=== PATIENT | female | born 1985 | race Caucasian/White ===

== ENCOUNTER 2018-05-17 12:16 | Outpatient (CLI) | payer OTHER ==
[2018-05-17 13:36] VITALS: BP 123/97; PULSE 107; RESP 16; TEMP 98
== END 2018-05-17 13:25 ==
LOC: FBPOP 12:16
PROVIDERS: ATTEND Obstetrics & Gynecology
DX: O26.893 Other specified pregnancy related conditions, third trimester (principal); Z3A.38 38 weeks gestation of pregnancy
CPT/HCPCS: 59025; 99213

== ENCOUNTER 2018-05-26 19:15 | Inpatient (IN) | payer OTHER ==
[2018-05-26 19:57] LABS: Appearance,Urine Clear (Clear); Bilirubin,Urine Negative (Negative); Blood,Urine Negative (Negative); Color,Urine Colorless; Glucose,Urine (UA) Negative (Negative); Ketones,Urine Negative (Negative); Leukocyte Esterase,Urine Negative (Negative); Nitrite,Urine Negative (Negative); PH, Urine 6.5 (5.0-8.0); Protein,Urine Negative (Negative); Specific Gravity,Urine 1.002 (1.001-1.035); Urobilinogen,Urine <2.0 mg/dL (<2.0)
[2018-05-26 20:06] VITALS: RESP 16
[2018-05-26 20:48] LABS: Basophils % (A) 0 %; Eosinophils # (A) 0.1 k/uL (0-0.7); Eosinophils % (A) 1 %; HGB 14.4 gm/dL (11.4-16.0); Lymphocytes # (A) 2.3 k/uL (1.0-4.8); Lymphocytes % (A) 29 %; MCH 32.6 pg (25.0-35.0); MCHC 34.2 g/dL (31.0-37.0); MCV 95.5 fL (80.0-100.0); Mean Platelet Volume 7.5; Monocytes # (A) 0.5 k/uL (0-1.0); Monocytes % (A) 6 %; Neutrophils # (A) 4.9 k/uL (1.3-7.7); Neutrophils % (A) 61 %; Platelet Count 325 k/uL (150-450); RDW 12.8 % (11.5-15.5); WBC 7.9 k/uL (3.8-10.6)
[2018-05-26 20:52] LABS: ALT 25 U/L (9-52); AST 26 U/L (14-36); Blood Urea Nitrogen 10 mg/dL (7-17); LDH 439 U/L (313-618); Uric Acid 5.8 mg/dL (3.7-7.4)
[2018-05-26] MEDS ORDERED: METHYLERGONOVINE 0.2 MG/ML 1 ML AMP IM PRN (21:27)
[2018-05-26] MEDS ORDERED: OXYTOCIN 10 UNIT/ML 1 ML VIAL IM PRN (21:27)
[2018-05-26] MEDS ORDERED: TERBUTALINE 1 MG/ML VIAL SQ PRN (21:27)
[2018-05-26] MEDS ORDERED: CARBOPROST TROMETHAMINE 250 MCG/ML 1 ML AMP IM PRN (21:27)
[2018-05-26] MEDS ORDERED: BUTORPHANOL 1 MG/ML 1 ML VIAL IV PRN (21:27)
[2018-05-26] MEDS ORDERED: LIDOCAINE 0.5% (PF) 5 MG/ML (50 ML SDV) SQ PRN (21:27)
[2018-05-26 21:48] VITALS: BMI 29.0
[2018-05-26] MEDS: LACTATED RINGERS 1,000 ML IV SCH (21:52)
[2018-05-27] MEDS: LACTATED RINGERS 1,000 ML IV SCH ×2 (03:35→09:40)
[2018-05-27] MEDS ORDERED: OXYTOCIN 20 UNITS/1000 ML NS 1,000 ML IV SCH ×2 (07:15→13:30)
[2018-05-27] MEDS ORDERED: SODIUM CHLORIDE 0.9% 100 ML BAG ONE (09:25)
[2018-05-27] MEDS ORDERED: fentaNYL (PF) 50 MCG/ML 5 ML AMP ONE (09:25)
[2018-05-27] MEDS ORDERED: ROPIVACAINE 5MG/ML 20ML VIAL ONE (09:25)
--- NOTE | 2018-05-27 09:54 | P.HPOB ---
History of Present Illness H&P Date: 05/27/18 Chief Complaint: 39-6/7 weeks, early labor The patient is a 32-year-old 6 para 3113 admitted at 39-6/7 by last menstrual period and 7 week ultrasound. She is admitted in early labor with all signs reassuring. She was scheduled for induction this morning. Her has been uncomplicated though she carries a history of a previous 28 week intrauterine demise in her previous for which she has been undergoing weekly nonstress testing which was reassuring throughout. On labor and delivery, all signs reassuring as noted above. Group B strep status is negative. Obstetrical history: 6 para 3113 with 3 term vaginal deliveries, one of which did have a shoulder dystocia. She additionally had a 28 week normal vaginal delivery of an intrauterine demise as noted above. Otherwise she' s had one early miscarriage. Current statistics are listed in history present illness. EDC of 05/28/2018 was established by last menstrual period and confirmed by 9 week ultrasound. Laboratory workup demonstrates a blood type of A+ with a negative antibody screen. Rubella status is immune. The remainder of the laboratory workup was within normal limits. Initial 1 hour Glucola was elevated but followed by a normal three-hour glucose tolerance test. Group B strep status is negative. Gynecologic history: Unremarkable with no history of any infections to include STDs. Review of Systems Review of systems is confined to history of present illness. Past Medical History Past Medical History: No Reported History Additional Past Medical History / Comment(s): History of PIH with prior History of Any Multi-Drug Resistant Organisms: None Reported Past Surgical History: No Surgical Hx Reported Additional Past Surgical History / Comment(s): iufd at 9 weeks last year Past Anesthesia/Blood Transfusion Reactions: No Reported Reaction Past Psychological History: Anxiety Additional Psychological History / Comment(s): prn meds, none during Smoking Status: Never smoker Past Alcohol Use History: None Reported Past Drug Use History: None Reported - Past Family History Mother Family Medical History: No Reported History Medications and Allergies Home Medications Medication Instructions Recorded Confirmed Type Pnv,Calcium 72/Iron/Folic Acid 1 tab PO DAILY 03/10/17 05/26/18 History [ Plus Tablet] Amoxicillin 875 mg PO Q12HR 05/26/18 05/26/18 History Aspirin [Adult Low Dose Aspirin EC] 81 mg PO DAILY 05/26/18 05/26/18 History Allergies Allergy/AdvReac Type Severity Reaction Status Date / Time No Known Allergies Allergy Verified 05/26/18 19:38 Exam Vital Signs Temp Pulse Resp BP Pulse Ox 05/26/18 21:43 97.7 F 91 16 114/82 05/26/18 21:25 114/82 05/26/18 19:53 97.0 F L 95 16 122/98 99 Intake and Output 05/26/18 05/27/18 05/27/18 22:59 06:59 14:59 Intake Total 1000 Balance 1000 Intake: Intake, IV Titration 1000 Amount Lactated Ringers 1,000 ml 1000 @ 125 mls/hr IV .Q8H [facility] Rx#:[id number] Other: # Voids 2 1 Weight 81.647 kg In general, this is a well-developed, well-nourished white female in no acute distress. Her heart has a regular rhythm and rate without murmur. Her lungs are clear to auscultation bilaterally in all villalobos. Her abdomen is gravid, nondistended, has normal active bowel sounds, is soft, nontender, and without any palpable masses aside from uterine fundus. Her extremities are without any cyanosis, clubbing, or edema and are nontender to palpation bilaterally. Digital cervical examination demonstrates her cervix to be 3 cm dilated, 50% effaced, the vertex in presentation at -3 station. Artificial rupture of membranes is carried out demonstrating clear fluid. Results Result Diagrams: 05/26/18 20:09 05/26/18 20:09 Assessment and Plan (1) Active labor at term Current Visit: Yes Status: Acute Code(s): GUM2826 - SNOMED Code(s): 20053453 Plan: The patient has been admitted for augmentation of labor. Pitocin augmentation has been started. An epidural catheter is in place for analgesia. She will have close maternal and surveillance and expectant management will be practiced.
[2018-05-27] MEDS ORDERED: LANOLIN CREAM 5 GM TUBE TOPICAL PRN (13:30)
[2018-05-27] MEDS ORDERED: SIMETHICONE 80 MG CHEWABLE PO PRN (13:30)
[2018-05-27] MEDS ORDERED: diphenhydrAMINE 25 MG CAP PO PRN (13:30)
[2018-05-27] MEDS ORDERED: HYDROCORTISONE 2.5% RECTAL CREAM 30 GM TUBE RECTAL PRN (13:30)
[2018-05-27] MEDS ORDERED: diphenhydrAMINE 50 MG/ML 1 ML VIAL IVP PRN ×2 (13:30)
[2018-05-27] MEDS ORDERED: BENZOCAINE/MENTHOL SPRAY 1 GM/SPRAY AEROSOL TOPICAL PRN (13:30)
[2018-05-27] MEDS ORDERED: HYDROcodone/APAP 5-325MG 1 EACH TAB PO PRN (13:30)
[2018-05-27] MEDS ORDERED: ZOLPIDEM 5 MG TAB PO PRN (13:30)
[2018-05-27] MEDS ORDERED: ACETAMINOPHEN TAB 325 MG TAB PO PRN (13:30)
[2018-05-27] MEDS ORDERED: diphenhydrAMINE 50 MG CAP PO PRN (13:30)
[2018-05-27] MEDS ORDERED: HYDROcodone/APAP 7.5-325MG 1 EACH TAB PO PRN (13:30)
[2018-05-27] MEDS ORDERED: WITCH HAZEL 1 EACH MED..PAD TOPICAL PRN (13:30)
--- NOTE | 2018-05-27 13:34 | P.PROBDLV ---
Vaginal Delivery Note - . Vaginal Delivery Note: The patient is a 32-year-old 6 para 3113 admitted at 39-6/7 weeks by good dating parameters perches admitted in early labor with a scheduled induction this morning. Her has been uncomplicated though she carries a history of a 28 week demise for which she has undergone weekly testing in the third trimester which is been reassuring. Group B strep status is negative. On labor and delivery, all signs reassuring. Pitocin augmentation was started and artificial rupture of membranes carried out demonstrating clear fluid. She had an epidural catheter placed for analgesia and then made fairly rapid progress through the active phase of labor to complete and 0 station. She pushed over the course of approximately 20 minutes to a normal spontaneous vaginal delivery of a viable 9 lbs. 3 oz. baby girl with Apgars of 9 at 1 minute and 9 at 5 minutes delivered in the left occiput transverse position. The placenta was delivered spontaneously, intact, and grossly normal with a grossly normal three-vessel cord inserted approximately 4-5 cm from the margin of the placental disc. Her were no lacerations of the perineum, vagina, or cervix. All sponge, instrument, and needle counts were correct. There were no complications. Estimated blood loss for the case was approximately 300 mL. Both mother and are resting comfortably in recovery.
[2018-05-27] MEDS: SENNOSIDES-DOCUSATE SODIUM 1 EACH TAB PO SCH (19:45)
[2018-05-27] MEDS: IBUPROFEN 600 MG TAB PO PRN (22:01)
[2018-05-28] MEDS: IBUPROFEN 600 MG TAB PO PRN ×2 (04:18→10:36)
[2018-05-28] MEDS: SENNOSIDES-DOCUSATE SODIUM 1 EACH TAB PO SCH (08:44)
--- NOTE | 2018-05-28 08:52 | P.DS ---
Providers Date of admission: 05/26/18 21:24 Expected date of discharge: 05/28/18 Attending physician: Edgar Hester Primary care physician: Stated None - Discharge Diagnosis(es) (1) Active labor at term Current Visit: Yes Status: Acute (2) Normal spontaneous vaginal delivery Current Visit: Yes Status: Acute Hospital Course: The patient is a 32-year-old 6 para 3113 admitted at 39-6/7 weeks by good dating parameters perches admitted in early labor with all signs reassuring. Her pregnancies been uncomplicated though she does have a history of a previous 28 week intrauterine demise in her previous . testing was reassuring. On labor and delivery, she had artificial rupture of membranes demonstrating clear fluid. She had Pitocin augmentation started. She then had an epidural catheter placed for analgesia and made fairly rapid progress through the active phase of labor. She pushed then to a normal spontaneous vaginal delivery of a viable 9 lbs. 3 oz. baby girl with Apgars of 9 at 1 minute and 9 at 5 minutes. Her course was unremarkable with vital signs remaining stable and her temperature was afebrile throughout. She was deemed stable for discharge on day #1 was discharged home to follow-up in the office in 6 weeks' time routinely. Discharge instructions included calling for any significantly increased bleeding or foul-smelling lochia, significantly increased fever abdominal pain, perineal complaints, breast complaints, or anything else that concerned her. She was additionally instructed to have nothing in the vagina for at least 6 weeks time to include intercourse. She understood all of her instructions and agrees to follow up as noted above. Discharge medications included continued vitamins as she has opted to breast-feed. She was otherwise to use [id number] analgesic pain medications. Maternal blood type is A+ and rubella status is immune. Procedures: #1. Pitocin augmentation #2. Artificial rupture of membranes #3. Epidural analgesia #4. Normal spontaneous vaginal delivery Patient Condition at Discharge: Good Plan - Discharge Summary New Discharge Prescriptions: No Action Pnv,Calcium 72/Iron/Folic Acid [ Plus Tablet] 1 tab PO DAILY Amoxicillin 875 mg PO Q12HR Aspirin [Adult Low Dose Aspirin EC] 81 mg PO DAILY Discharge Medication List Pnv,Calcium 72/Iron/Folic Acid [ Plus Tablet] 1 tab PO DAILY 03/10/17 [ History] Amoxicillin 875 mg PO Q12HR 05/26/18 [History] Aspirin [Adult Low Dose Aspirin EC] 81 mg PO DAILY 05/26/18 [History] Follow up Appointment(s)/Referral(s): Edgar Hester MD [STAFF PHYSICIAN] - 6 Weeks Discharge Disposition: HOME SELF-CARE
[2018-05-28 09:23] VITALS: TEMP 97.8
[2018-05-28 13:47] VITALS: BP 126/82; PULSE 69
== END 2018-05-28 14:30 | disposition home or self-care (01) | DRG 807 ==
LOC: FBPOP 19:15 → 4FBP 21:24
PROVIDERS: ADMIT Obstetrics & Gynecology Obstetrics; ATTEND Obstetrics & Gynecology
PROC: 10E0XZZ Delivery of Products of Conception, External Approach (ICD-10-PCS; principal; 2018-05-27)
PROC: 00HU33Z Insertion of Infusion Device into Spinal Canal, Percutaneous Approach (ICD-10-PCS; 2018-05-27)
PROC: 3E0R3BZ Introduction of Anesthetic Agent into Spinal Canal, Percutaneous Approach (ICD-10-PCS; 2018-05-27)
DX: O99.344 Other mental disorders complicating childbirth (principal); Z37.0 Single live birth; F41.9 Anxiety disorder, unspecified; Z3A.39 39 weeks gestation of pregnancy; Z79.82 Long term (current) use of aspirin
CPT/HCPCS: 59025; 81003; 82565; 83615; 84450; 84460; 84520; 84550; 85025; 86850; 86900; 86901; 99213

== ENCOUNTER → 2019-06-26 | Outpatient (CLI) | payer OTHER | END | disposition home or self-care (01) | LOC: LABWHC1 10:49 | PROVIDERS: ATTEND Obstetrics & Gynecology | DX: N91.2 Amenorrhea, unspecified (principal) | CPT/HCPCS: 36415; 84144; 84702 ==

== ENCOUNTER → 2019-06-28 | Outpatient (CLI) | payer OTHER | END | disposition home or self-care (01) | LOC: LABWHC1 10:45 | PROVIDERS: ATTEND Obstetrics & Gynecology | DX: N91.2 Amenorrhea, unspecified (principal) | CPT/HCPCS: 36415; 84702 ==

== ENCOUNTER → 2019-07-18 | Outpatient (CLI) | payer OTHER | END | disposition home or self-care (01) | LOC: LABWHC1 16:47 | DX: Z53.9 Procedure and treatment not carried out, unspecified reason (principal) ==

== ENCOUNTER → 2019-07-21 | Outpatient (CLI) | payer OTHER ==
[2019-07-21 16:38] LABS: Cardiolipin Ab IgG Interp NEGATIVE (NEGATIVE); Cardiolipin Ab IgM Interp NEGATIVE (NEGATIVE); Cardiolipin IgA Antibody 8.8 U/mL
[2019-07-22 12:05] LABS: APTT 37 Sec(s) (<43); Dilute Russell Viper Venom 39 Sec(s) (<44)
== END | disposition home or self-care (01) ==
LOC: LABWHC1 09:50
PROVIDERS: ATTEND Orthopaedic Surgery
DX: O26.20 Pregnancy care for patient with recurrent pregnancy loss, unspecified trimester (principal); O09.219 Supervision of pregnancy with history of pre-term labor, unspecified trimester
CPT/HCPCS: 36415; 81240; 81291; 85300; 85613; 85730; 86146; 86147

== ENCOUNTER → 2020-03-02 | Outpatient (CLI) | payer OTHER | END | disposition home or self-care (01) | LOC: LABWHC1 09:43 | PROVIDERS: ATTEND Obstetrics & Gynecology | DX: U07.1 COVID-19 (principal) | CPT/HCPCS: U0003; C9803 ==

== ENCOUNTER 2020-03-07 03:12 | Inpatient (IN) | payer OTHER ==
[2020-03-07 03:29] LABS: Glucose,Whole Blood 84 mg/dL (75-99)
[2020-03-07] MEDS ORDERED: diphenhydrAMINE 50 MG CAP PO PRN (03:56)
[2020-03-07] MEDS ORDERED: LANOLIN CREAM 5 GM TUBE TOPICAL PRN (03:56)
[2020-03-07] MEDS ORDERED: diphenhydrAMINE 50 MG/ML 1 ML VIAL IVP PRN ×2 (03:56)
[2020-03-07] MEDS ORDERED: diphenhydrAMINE 25 MG CAP PO PRN (03:56)
[2020-03-07] MEDS ORDERED: SIMETHICONE 80 MG CHEWABLE PO PRN (03:56)
[2020-03-07] MEDS ORDERED: HYDROCORTISONE 2.5% RECTAL CREAM 30 GM TUBE RECTAL PRN (03:56)
[2020-03-07] MEDS ORDERED: ZOLPIDEM 5 MG TAB PO PRN (03:56)
[2020-03-07] MEDS ORDERED: BENZOCAINE/MENTHOL SPRAY 1 GM/SPRAY AEROSOL TOPICAL PRN (03:56)
[2020-03-07] MEDS ORDERED: OXYTOCIN 20 UNITS/1000 ML NS 1,000 ML IV SCH (04:00)
--- NOTE | 2020-03-07 04:06 | P.HPOB ---
History of Present Illness H&P Date: 03/07/20 Chief Complaint: IUP @ 40 0/7 weeks, labor, meconium stained fluid Yes this is a 34-year-old that presents to labor and delivery with complaints of regular painful contractions that started around 2 AM. Patient states they progressed quickly and she presented to labor and delivery. At some point underwent hospital rupture of membranes occurred. Patient has noted good movement today. Patient has been receiving routine care which is been essentially uncomplicated. Patient is known homozygous empty HFR and was on Lovenox 40 mg subcu daily which was subsequently changed to heparin at 36 weeks. Of note patient has a history of a 28 week IUFD and patient has been receiving testing since 30 weeks. On bloodwork patient was noted to have blood type of A+, rubella status immune, RPR nonreactive, B surface antigen negative, HIV negative, she did fail her 1 hour Glucola and subsequent 3 hour. She states her blood sugars have been normal throughout the . Group beta strep culture was negative. Review of Systems Constitutional: Denies chills, Denies fatigue, Denies fever Ears, nose, mouth and throat: Denies headache Cardiovascular: Reports leg edema Gastrointestinal: Denies constipation, Denies diarrhea, Denies nausea, Denies vomiting Genitourinary: Reports Past Medical History Past Medical History: No Reported History Additional Past Medical History / Comment(s): History of PIH with prior pre gnancy, gestational diabetes History of Any Multi-Drug Resistant Organisms: None Reported Past Surgical History: No Surgical Hx Reported Additional Past Surgical History / Comment(s): iufd at 9 weeks last year Past Anesthesia/Blood Transfusion Reactions: No Reported Reaction Past Psychological History: Anxiety Additional Psychological History / Comment(s): prn meds, none during Smoking Status: Never smoker Past Alcohol Use History: None Reported Past Drug Use History: None Reported - Past Family History Mother Family Medical History: No Reported History Medications and Allergies Home Medications Medication Instructions Recorded Confirmed Type Pnv,Calcium 72/Iron/Folic Acid 1 tab PO DAILY 03/10/17 12/26/19 History [ Plus Tablet] Aspirin [Adult Low Dose Aspirin EC] 81 mg PO DAILY 05/26/18 12/26/19 History Allergies Allergy/AdvReac Type Severity Reaction Status Date / Time No Known Allergies Allergy Verified 08/14/20 11:30 Exam Osteopathic Statement: *. No significant issues noted on an osteopathic structural exam other than those noted in the History and Physical/Consult. Targeted physical exam is performed on this date in general this is a [facility] well[facility]developed [facility] in obvious active labor, breathing is noted to be nonlabored, heart has regular rate and rhythm, abdomen is noted to be gravid, heart tones are noted to be reassuring but patient is moving around in the bed so there was some difficulty monitoring the baby. On cervical exam she was completely dilated, +2 station meconium stained fluid was noted. Assessment and Plan (1) Thick meconium stained amniotic fluid Current Visit: Yes Status: Acute Code(s): P96.83 - MECONIUM STAINING SNOMED Code(s): 249244138 (2) Active labor at term Current Visit: No Status: Acute Code(s): FLK7295 - SNOMED Code(s): 17276162 Plan: Patient is admitted to labor and delivery for anticipated precipitous spontaneous vaginal delivery.
--- NOTE | 2020-03-07 04:08 | P.PROBDLV ---
Vaginal Delivery Note - . Vaginal Delivery Note: This is a 34-year-old 8 para 4034 that presented to labor and delivery in active labor. Patient was noted to be 8 cm upon presentation with thick meconium fluid being noted. Patient quickly progressed to complete began pushing and had a normal spontaneous vaginal delivery of a viable male , at 340, weight of 9 and 9 lbs. 11 oz. with Apgars of 8/9 at one and 5 minutes respectively. A loose nuchal cord was noted at delivery and reduced on the perineum. Umbilical cord was doubly clamped and cut and the infant was handed off to awaiting RN spontaneous cry was noted at . The placenta was then delivered spontaneously intact with a three-vessel cord being noted. Meconium- staining of the placenta was noted. On inspection the patient's vaginal vault no lacerations were noted. The uterus is noted be firm and below the umbilicus. Estimated blood loss 200 mL. All counts were noted correct 2 at the delivery Patient and tolerated delivery well and are resting comfortably.
[2020-03-07] MEDS: IBUPROFEN 600 MG TAB PO PRN ×3 (04:20→17:35)
[2020-03-07 04:58] LABS: Glucose,Whole Blood 91 mg/dL (75-99)
[2020-03-07] MEDS: ACETAMINOPHEN TAB 325 MG TAB PO PRN ×3 (08:04→20:43)
[2020-03-07] MEDS: SENNOSIDES-DOCUSATE SODIUM 1 EACH TAB PO SCH ×2 (08:04→20:43)
[2020-03-07] MEDS: PRENATAL VIT-IRON-FOLIC ACID 1 EACH CAP PO SCH (11:53)
[2020-03-08] MEDS: IBUPROFEN 600 MG TAB PO PRN (08:21)
[2020-03-08] MEDS: SENNOSIDES-DOCUSATE SODIUM 1 EACH TAB PO SCH (08:21)
--- NOTE | 2020-03-08 09:00 | P.DS ---
Providers Date of admission: 03/07/20 03:12 Expected date of discharge: 03/08/20 Attending physician: Edgar Hester Primary care physician: Edgar Hester - Discharge Diagnosis(es) (1) Normal spontaneous vaginal delivery Current Visit: No Status: Acute Hospital Course: The patient is a 34-year-old 8 para 4044 presented to labor and delivery in active labor with all signs reassuring. Her has been uncomplicated though she has a history of a late term demise for which she has been receiving testing on a weekly basis which has been reassuring throughout. She has additionally been using Lovenox 40 mg subcutaneously on a daily basis for a history of MTHFR heterozygous gene mutation. She was noted to have thick meconium-stained fluid and progressed very quickly to complete where after she pushed to a normal spontaneous vaginal delivery of a viable 9 lbs. 11 oz. baby boy with Apgars of 8 at 1 minute and 9 at 5 minutes. Her course was entirely unremarkable with vital signs remaining stable and her temperature was afebrile throughout. She was deemed stable for discharge by day #1 was discharged home to follow-up in the office in 6 weeks' time routinely. Discharge instructions included calling for any significantly increased bleeding or foul-smelling lochia, significantly increased fever abdominal pain, perineal complaints, breast complaints, or anything also concerned her. She was additionally instructed to have nothing in the vagina for at least 6 weeks time to include intercourse. She understood her instructions and agrees to follow up as noted above. Discharge medications included continue vitamins as she has opted to breast-feed. She was otherwise to take [id number] analgesic pain medications as needed. Maternal blood type is A+ and rubella status is immune. Procedures: #1. Normal spontaneous vaginal delivery Patient Condition at Discharge: Stable Plan - Discharge Summary New Discharge Prescriptions: No Action Pnv,Calcium 72/Iron/Folic Acid [ Plus Tablet] 1 tab PO DAILY Aspirin [Adult Low Dose Aspirin EC] 81 mg PO DAILY Heparin Sodium,Porcine [Heparin Sodium] 5,000 unit SQ Q12HR Discharge Medication List Pnv,Calcium 72/Iron/Folic Acid [ Plus Tablet] 1 tab PO DAILY 03/10/17 [History] Aspirin [Adult Low Dose Aspirin EC] 81 mg PO DAILY 05/26/18 [History] Heparin Sodium,Porcine [Heparin Sodium] 5,000 unit SQ Q12HR 03/07/20 [History] Follow up Appointment(s)/Referral(s): Edgar Hester MD [Primary Care Provider] - 6 Weeks Discharge Disposition: HOME SELF-CARE
[2020-03-08 09:14] VITALS: BP 136/87; PULSE 95; RESP 16; TEMP 98
[2020-03-08] MEDS: PRENATAL VIT-IRON-FOLIC ACID 1 EACH CAP PO SCH (09:15)
== END 2020-03-08 10:40 | disposition home or self-care (01) | DRG 806 ==
LOC: 4FBP 03:12
PROVIDERS: ADMIT Obstetrics & Gynecology Obstetrics; ATTEND Obstetrics & Gynecology
PROC: 10E0XZZ Delivery of Products of Conception, External Approach (ICD-10-PCS; principal; 2020-03-07)
DX: O99.284 Endocrine, nutritional and metabolic diseases complicating childbirth (principal); E72.12 Methylenetetrahydrofolate reductase deficiency; Z37.0 Single live birth; O69.81X0 Labor and delivery complicated by cord around neck, without compression, not applicable or unspecified; O77.0 Labor and delivery complicated by meconium in amniotic fluid; O99.344 Other mental disorders complicating childbirth; F41.9 Anxiety disorder, unspecified; Z3A.40 40 weeks gestation of pregnancy; Z79.82 Long term (current) use of aspirin; Z86.32 Personal history of gestational diabetes

== ENCOUNTER → 2021-01-31 | Outpatient (CLI) | payer OTHER | END | disposition home or self-care (01) | LOC: LABWHC1 10:12 | PROVIDERS: ATTEND Obstetrics & Gynecology | DX: N92.5 Other specified irregular menstruation (principal) | CPT/HCPCS: 36415; 84144; 84702 ==

== ENCOUNTER → 2021-02-02 | Outpatient (CLI) | payer OTHER | END | disposition home or self-care (01) | LOC: LABWHC1 09:53 | PROVIDERS: ATTEND Obstetrics & Gynecology | DX: O20.0 Threatened abortion (principal); Z3A.00 Weeks of gestation of pregnancy not specified | CPT/HCPCS: 36415; 84702 ==

== ENCOUNTER 2021-10-06 06:27 | Inpatient (IN) | payer BC, OTHER ==
[2021-10-06] MEDS ORDERED: OXYTOCIN 10 UNIT/ML 1 ML VIAL IM PRN (06:54)
[2021-10-06] MEDS ORDERED: LIDOCAINE 0.5% (PF) 5 MG/ML (50 ML SDV) SQ PRN (06:54)
[2021-10-06] MEDS ORDERED: METHYLERGONOVINE 0.2 MG/ML 1 ML AMP IM PRN (06:54)
[2021-10-06] MEDS ORDERED: CARBOPROST TROMETHAMINE 250 MCG/ML 1 ML AMP IM PRN (06:54)
[2021-10-06] MEDS ORDERED: TERBUTALINE 1 MG/ML VIAL SQ PRN (06:54)
[2021-10-06] MEDS ORDERED: OXYTOCIN 30 UNITS/500 ML NS 30 UNIT in SALINE 1 500ML.BAG IV SCH (07:00)
[2021-10-06] MEDS: LACTATED RINGERS 1,000 ML IV SCH ×3 (07:05→21:56)
[2021-10-06 07:27] LABS: Basophils % (A) 0 %; Eosinophils # (A) 0.1 k/uL (0-0.7); Eosinophils % (A) 1 %; HCT 44.6 % (34.0-46.0); HGB 14.5 gm/dL (11.4-16.0); Lymphocytes # (A) 1.6 k/uL (1.0-4.8); Lymphocytes % (A) 22 %; MCH 32.7 pg (25.0-35.0); MCHC 32.6 g/dL (31.0-37.0); MCV 100.5 fL (80.0-100.0); Mean Platelet Volume 7.3; Monocytes # (A) 0.4 k/uL (0-1.0); Monocytes % (A) 6 %; Neutrophils % (A) 68 %; Platelet Count 333 k/uL (150-450); RBC 4.44 m/uL (3.80-5.40); RDW 13.4 % (11.5-15.5); WBC 7.3 k/uL (3.8-10.6)
--- NOTE | 2021-10-06 08:09 | P.HPOB ---
History of Present Illness H&P Date: 10/06/21 Chief Complaint: Here for elective induction of labor This is a 36-year-old female 9 para 5035 EDC 10/10/2021 39-3/7 weeks' gestation who presents for induction of labor. is unremarkable. Fetus is been active throughout the . She is having mild irregular uterine contractions. Past medical history is positive for positive MTHFR gene mutation, history of anxiety. Past surgical history wisdom teeth extracted. Current medications Lovenox 40 mg subcutaneously daily, discontinued 1 week ago. vitamin daily, baby aspirin daily. ALLERGIES none known. Family history significant for hypertension, hypothyroidism, juvenile rheumatoid arthritis. Reproductive history normal spontaneous vaginal deliveries 5, largest baby 9 lbs. 11 oz. Social history patient is , she is a nonsmoker, she denies alcohol or drug use. history blood type is A+, rubella status immune. VDRL testing, hepatitis B surface antigen, urine culture, HIV testing, group B strep cultures all negative. One-hour Glucola 112. On exam patient is 5 foot 6 inches, 157 pounds, blood pressure 116/84. General physical exam is within normal limits. Cervix is 3 cm dilated, 60% effaced, -2 station, vertex presentation. Artificial amniorrhexis reveals clear fluid. heart rate is consistent with reactive NST. Impression: Advanced maternal age, 39-3/7 weeks intrauterine , history of positive MTHFR, here for induction of labor. All signs reassuring. Plan: Oxytocin per hospital protocol. Continue close maternal and survei llance. Analgesic options reviewed. Anticipate normal spontaneous vaginal delivery. Review of Systems Constitutional: Reports as per HPI Past Medical History Past Medical History: No Reported History Additional Past Medical History / Comment(s): History of PIH with prior , gestational diabetes History of Any Multi-Drug Resistant Organisms: None Reported Past Surgical History: No Surgical Hx Reported Additional Past Surgical History / Comment(s): iufd at 9 weeks last year Past Anesthesia/Blood Transfusion Reactions: No Reported Reaction Past Psychological History: Anxiety Additional Psychological History / Comment(s): prn meds, none during Smoking Status: Never smoker Past Alcohol Use History: None Reported Past Drug Use History: None Reported - Past Family History Father Family Medical History: Diabetes Mellitus, Hypertension Medications and Allergies Home Medications Medication Instructions Recorded Confirmed Type Pnv,Calcium 72/Iron/Folic Acid 1 tab PO DAILY 03/10/17 10/06/21 History [ Plus Tablet] Aspirin [Adult Low Dose Aspirin EC] 81 mg PO DAILY 05/26/18 10/06/21 History Enoxaparin [Lovenox] 40 mg SQ DAILY 10/06/21 10/06/21 History Allergies Allergy/AdvReac Type Severity Reaction Status Date / Time No Known Allergies Allergy Verified 03/07/20 04:22 Exam Intake and Output 10/05/21 10/06/21 10/06/21 22:59 06:59 14:59 Other: Weight 71.214 kg See dictation under HPI please Results Result Diagrams: 10/06/21 06:50 Abnormal Lab Results - Last 24 Hours (Table) 10/06/21 Range/Units 06:50 MCV 100.5 H (80.0-100.0) fL Assessment and Plan Assessment: Advanced maternal age, grand multipara, 39-3/7 weeks' gestation, here for induction of labor. Plan: Continue close maternal and surveillance. Oxytocin per hospital protocol. Analgesic options reviewed. Anticipate normal spontaneous vaginal delivery. Time with Patient: Less than 30
--- NOTE | 2021-10-06 14:56 | P.PROBDLV ---
Vaginal Delivery Note - . Vaginal Delivery Note: This is a 36-year-old 9 para 5035 EDC 10/10/2021 at 39-3/7 weeks' gestation. Patient presented for induction with favorable cervix. Rupee strep cultures negative, blood type A+, rubella status immune. Please see my dictated history and physical for details. Artificial amniorrhexis revealed clear fluid. Oxytocin was started and titrated per hospital protocol. Epidural was placed per her request. heart tones were reassuring throughout the first and second stages of labor. Patient became completely dilated at 1304 hrs. and began the second stage of labor at that time. Perineal body was prepped and draped in usual sterile fashion. After 20 minutes the 's head delivered straight occiput posterior. She restituted accordingly. There was no nuchal cord noted. The right or anterior shoulder was delivered from underneath the pubic symphysis at which time the oropharynx, nasopharynx, and external nares were bulb suctioned. Patient was officially delivered of a liveborn female infant at 1324 hrs. The umbilical cord was doubly clamped and ligated, she was handed to waiting nurses for evaluation where scores of 9 and 9 at one and 5 minutes respectively were given. Placenta delivered spontaneously, it was inspected and noted to be intact with trivascular cord at 1326 hours. At this time the uterus is massaged. Careful inspection of the cervix, vagina, perineum, periurethral, and perirectal areas revealed no lacerations or defects. Total estimated blood loss 150 mL's. weighed 10 lbs. 7 oz. or 3470 g. Patient and her are allowed to begin the bonding experience in the LDR.
[2021-10-06] MEDS ORDERED: ACETAMINOPHEN TAB 325 MG TAB PO PRN (20:19)
[2021-10-06] MEDS ORDERED: LANOLIN CREAM 5 GM TUBE TOPICAL PRN (20:19)
[2021-10-06] MEDS ORDERED: SIMETHICONE 80 MG CHEWABLE PO PRN (20:19)
[2021-10-06] MEDS ORDERED: diphenhydrAMINE 50 MG CAP PO PRN (20:19)
[2021-10-06] MEDS ORDERED: ZOLPIDEM 5 MG TAB PO PRN (20:19)
[2021-10-06] MEDS ORDERED: diphenhydrAMINE 25 MG CAP PO PRN (20:19)
[2021-10-06] MEDS: IBUPROFEN 600 MG TAB PO PRN (20:39)
[2021-10-06] MEDS: SENNOSIDES-DOCUSATE SODIUM 1 EACH TAB PO SCH (20:39)
[2021-10-07] MEDS: IBUPROFEN 600 MG TAB PO PRN ×2 (02:59→09:20)
[2021-10-07 07:18] LABS: Basophils % (A) 0 %; Eosinophils # (A) 0.2 k/uL (0-0.7); Eosinophils % (A) 2 %; HCT 41.5 % (34.0-46.0); HGB 13.4 gm/dL (11.4-16.0); Lymphocytes # (A) 1.5 k/uL (1.0-4.8); Lymphocytes % (A) 17 %; MCH 32.5 pg (25.0-35.0); MCHC 32.2 g/dL (31.0-37.0); MCV 100.8 fL (80.0-100.0); Mean Platelet Volume 7.7; Monocytes # (A) 0.6 k/uL (0-1.0); Monocytes % (A) 7 %; Neutrophils # (A) 6.4 k/uL (1.3-7.7); Neutrophils % (A) 72 %; Platelet Count 261 k/uL (150-450); RBC 4.12 m/uL (3.80-5.40); RDW 12.9 % (11.5-15.5)
[2021-10-07] MEDS ORDERED: SENNOSIDES-DOCUSATE SODIUM 1 EACH TAB PO SCH (08:00)
[2021-10-07] MEDS: SENNOSIDES-DOCUSATE SODIUM 1 EACH TAB PO SCH (08:14)
[2021-10-07 08:19] VITALS: BP 118/75; PULSE 83; RESP 17; TEMP 98.3
--- NOTE | 2021-10-07 09:31 | P.DS ---
Providers Date of admission: 10/06/21 06:27 Expected date of discharge: 10/07/21 Attending physician: Edgar Hester Primary care physician: Stated None - Discharge Diagnosis(es) (1) Normal spontaneous vaginal delivery Current Visit: No Status: Acute Hospital Course: The patient is a 36-year-old 9 para 5125 admitted at 39-3/7 weeks by good dating parameters. She is admitted for elective induction of labor having had history of a previous roughly 28 week demise and diagnosis of MT HFR gene mutation for which she has been on Lovenox throughout the . In order to make an epidural possible, induction was recommended and agreed to by the patient. She additionally falls into the category of advanced maternal age and declined testing. She lastly has had an unstable lie over the last 4 weeks but is found to be vertex this week and at the time of admission. Pitocin augmentation was started and artificial rupture of membranes started. She had an epidural catheter placed for analgesia. She made progress to the active phase of labor to complete and then pushed to a normal spontaneous vaginal delivery of a viable 7 lbs. 10 oz. baby girl with Apgars of 9 at 1 minute and 9 at 5 minutes. Her course was unremarkable vital signs being stable and her temperature was afebrile throughout. She was deemed stable for discharge on day #1 was discharged home to follow-up in the office in 6 weeks' time routinely. Discharge instructions included calling for any significantly increased bleeding or foul-smelling lochia, significantly increased fever or abdominal pain, perineal complaints, breast complaints, or anything else that concerned her. She is additionally instructed to have nothing in the vagina for at least 6 weeks time to include intercourse. She understood her instructions and agrees follow up as noted above. Discharge medications included continued vitamins as she has opted to breast- feed. She is otherwise to use [id number] analgesic pain medications as needed. Maternal blood type is A+ and rubella status is immune. Procedures: #1. Pitocin induction #2. Artificial rupture of membranes #3. Epidural analgesia #4. Normal spontaneous vaginal delivery Patient Condition at Discharge: Stable Plan - Discharge Summary New Discharge Prescriptions: No Action Pnv,Calcium 72/Iron/Folic Acid [ Plus Tablet] 1 tab PO DAILY Aspirin [Adult Low Dose Aspirin EC] 81 mg PO DAILY Enoxaparin [Lovenox] 40 mg SQ DAILY Discharge Medication List Pnv,Calcium 72/Iron/Folic Acid [ Plus Tablet] 1 tab PO DAILY 03/10/17 [History] Aspirin [Adult Low Dose Aspirin EC] 81 mg PO DAILY 05/26/18 [History] Enoxaparin [Lovenox] 40 mg SQ DAILY 10/06/21 [History] Follow up Appointment(s)/Referral(s): Edgar Hester MD [STAFF PHYSICIAN] - 6 Weeks Discharge Disposition: HOME SELF-CARE
== END 2021-10-07 14:25 | disposition home or self-care (01) | DRG 806 ==
LOC: 4FBP 06:27
PROVIDERS: ADMIT Obstetrics & Gynecology; ATTEND Obstetrics & Gynecology
PROC: 10E0XZZ Delivery of Products of Conception, External Approach (ICD-10-PCS; principal; 2021-10-06)
PROC: 4A0HXCZ Measurement of Products of Conception, Cardiac Rate, External Approach (ICD-10-PCS; 2021-10-06)
PROC: 10907ZC Drainage of Amniotic Fluid, Therapeutic from Products of Conception, Via Natural or Artificial Opening (ICD-10-PCS; 2021-10-06)
PROC: 3E033VJ Introduction of Other Hormone into Peripheral Vein, Percutaneous Approach (ICD-10-PCS; 2021-10-06)
DX: O99.284 Endocrine, nutritional and metabolic diseases complicating childbirth (principal); E72.12 Methylenetetrahydrofolate reductase deficiency; Z37.0 Single live birth; F41.9 Anxiety disorder, unspecified; O99.344 Other mental disorders complicating childbirth; Z3A.39 39 weeks gestation of pregnancy; Z79.82 Long term (current) use of aspirin; Z86.32 Personal history of gestational diabetes
CPT/HCPCS: 85025; 86850; 86900; 86901

== ENCOUNTER → 2021-10-31 | Outpatient (CLI) | payer BC, OTHER ==
[2021-10-31 14:22] LABS: HCT 50.8 % (37.2-46.3); HGB 15.9 g/dL (12.0-15.0); MCH 31.2 pg (27.0-32.0); MCHC 31.3 g/dL (32.0-37.0); MCV 99.8 fL (80.0-97.0); Mean Platelet Volume 9.7 fL (9.5-12.2); NRBC Per 100 WBC 0 /100 WBCS (0.0-0.0); Platelet Count 353 X 10*3/uL (140-440); RBC 5.09 X 10*6/uL (4.10-5.20); RDW 11.5 % (11.5-14.5); WBC 5.34 X 10*3/uL (4.50-10.00)
[2021-10-31 15:01] LABS: % Iron Saturation 43.79 (12.00-45.00)
== END | disposition home or self-care (01) ==
LOC: LABWHC1 08:41
PROVIDERS: ATTEND Family Medicine
DX: D68.59 Other primary thrombophilia (principal)
CPT/HCPCS: 36415; 82306; 82728; 82746; 83090; 83540; 83550; 85027

== ENCOUNTER 2023-05-30 06:14 | Inpatient (IN) | payer BC, OTHER ==
[2023-05-30] MEDS ORDERED: OXYTOCIN 10 UNIT/ML 1 ML VIAL IM PRN (06:34)
[2023-05-30] MEDS ORDERED: METHYLERGONOVINE 0.2 MG/ML 1 ML AMP IM PRN (06:34)
[2023-05-30] MEDS ORDERED: miSOPROStoL 200 MCG TAB PO PRN (06:34)
[2023-05-30] MEDS ORDERED: TRANEXAMIC 1,000 MG/100ML-NACL 1,000 MG in EMPTY BAG 1 BAG IV PRN (06:34)
[2023-05-30] MEDS ORDERED: LIDOCAINE 0.5% (PF) 5 MG/ML (50 ML SDV) SQ PRN (06:34)
[2023-05-30] MEDS ORDERED: CARBOPROST TROMETHAMINE 250 MCG/ML 1 ML AMP IM PRN (06:34)
[2023-05-30] MEDS ORDERED: TERBUTALINE 1 MG/ML VIAL SQ PRN (06:34)
[2023-05-30] MEDS ORDERED: OXYTOCIN 30 UNITS/500 ML NS 30 UNIT in SALINE 1 500ML.BAG IV SCH ×2 (06:45→12:30)
[2023-05-30] MEDS: LACTATED RINGERS 1,000 ML IV SCH ×2 (07:04→10:43)
[2023-05-30 07:14] LABS: Basophils % (A) 0 %; Eosinophils # (A) 0.1 k/uL (0-0.7); Eosinophils % (A) 1 %; HCT 43.9 % (34.0-46.0); HGB 14.8 gm/dL (11.4-16.0); Lymphocytes # (A) 1.9 k/uL (1.0-4.8); Lymphocytes % (A) 26 %; MCH 32.7 pg (25.0-35.0); MCHC 33.8 g/dL (31.0-37.0); MCV 96.7 fL (80.0-100.0); Mean Platelet Volume 8.1; Monocytes # (A) 0.6 k/uL (0-1.0); Monocytes % (A) 8 %; Neutrophils # (A) 4.5 k/uL (1.3-7.7); Neutrophils % (A) 61 %; Platelet Count 326 k/uL (150-450); RBC 4.53 m/uL (3.80-5.40); RDW 12.5 % (11.5-15.5); WBC 7.4 k/uL (3.8-10.6)
[2023-05-30] MEDS ORDERED: NALBUPHINE 10 MG/ML (10 ML MDV) IV PRN (07:55)
--- NOTE | 2023-05-30 07:55 | P.HPOB ---
History of Present Illness H&P Date: 05/30/23 Chief Complaint: 39+ weeks, elective induction The patient is a 37-year-old 9 para 5125 who presents for elective induction with all signs reassuring, category 1 heart rate tracing. 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 Since that time she has been put on Lovenox during the pregnancies prophylactically and has been on same for this with last dose yesterday. Her is otherwise been uncomplicated. She does fall into the category of advanced maternal age and declined trisomy testing. Group B strep status is negative. Obstetrical history: 9 para 5125 with 5 term vaginal deliveries and 1 second trimester intrauterine demise which was delivered vaginally as well. She has been on Lovenox as noted in history of present illness for each of since lost several pregnancies ago. EDC of 06/05/2023 was determined by last menstrual period and confirmed by 8 week ultrasound. Laboratory workup demonstrates a blood type of A+ with a negative antibody screen. Rubella status is immune. The remainder of the laboratory workup was within normal limits. One hour Glucola was normal and group B strep status is negative. Gynecologic history: Unremarkable with no history of any infections to include STDs. Review of Systems Review of systems is confined to history of present illness. Past Medical History Past Medical History: No Reported History Additional Past Medical History / Comment(s): History of PIH with prior , gestational diabetes History of Any Multi-Drug Resistant Organisms: None Reported Past Surgical History: No Surgical Hx Reported Additional Past Surgical History / Comment(s): iufd at 9 weeks last year Past Anesthesia/Blood Transfusion Reactions: No Reported Reaction Past Psychological History: Anxiety Additional Psychological History / Comment(s): prn meds, none during Smoking Status: Never smoker Past Alcohol Use History: None Reported Past Drug Use History: None Reported - Past Family History Father Family Medical History: Diabetes Mellitus, Hypertension Medications and Allergies Home Medications Medication Instructions Recorded Confirmed Type Pnv,Calcium 72/Iron/Folic Acid 1 tab PO DAILY 03/10/17 05/30/23 History [ Plus Tablet] Aspirin [Adult Low Dose Aspirin EC] 81 mg PO DAILY 05/26/18 05/30/23 History Enoxaparin [Lovenox] 40 mg SQ DAILY 10/06/21 05/30/23 History Allergies Allergy/AdvReac Type Severity Reaction Status Date / Time No Known Allergies Allergy Verified 03/07/20 04:22 Exam Intake and Output 05/29/23 05/30/23 05/30/23 22:59 06:59 14:59 Other: Weight 73.482 kg in general, this is a well-developed, well-nourished white female in no acute distress. Her heart has a regular rhythm and rate without murmur. Her lungs are clear to auscultation bilaterally in all villalobos. Her abdomen is gravid,.nondistended, has normal active bowel sounds, is soft, nontender, and without any palpable masses aside from uterine fundus. Her extremities are without any cyanosis, clubbing, or edema and are nontender to palpation bilaterally. Digital cervical examination demonstrates her cervix to be 3 cm dilated, 50% effaced, the vertex in presentation at -3 station. Artificial rupture of membranes is carried out demonstrating clear fluid. Results Result Diagrams: 05/30/23 07:00 Assessment and Plan (1) Term Current Visit: Yes Status: Acute Code(s): Z34.90 - ENCNTR FOR SUPRVSN OF NORMAL , UNSP, UNSP TRIMESTER SNOMED Code(s): 61918972 Plan: The patient is admitted for Pitocin induction which has been started. She is undergone artificial rupture of membranes. She will have close maternal and surveillance and expectant management will be practiced. She is a good candidate for either IV, epidural, or nitrous analgesia, whichever she may choose.
[2023-05-30] MEDS ORDERED: SIMETHICONE 80 MG CHEWABLE PO PRN (12:22)
[2023-05-30] MEDS ORDERED: ZOLPIDEM 5 MG TAB PO PRN (12:22)
[2023-05-30] MEDS ORDERED: HYDROCORTISONE 2.5% RECTAL CREAM 30 GM TUBE RECTAL PRN (12:22)
[2023-05-30] MEDS ORDERED: LANOLIN CREAM 5 GM TUBE TOPICAL PRN (12:22)
[2023-05-30] MEDS ORDERED: diphenhydrAMINE 50 MG CAP PO PRN (12:22)
[2023-05-30] MEDS ORDERED: HYDROcodone/APAP 5-325MG 1 EACH TAB PO PRN (12:22)
[2023-05-30] MEDS ORDERED: ACETAMINOPHEN TAB 325 MG TAB PO PRN (12:22)
[2023-05-30] MEDS ORDERED: BENZOCAINE/MENTHOL SPRAY 1 GM/SPRAY AEROSOL TOPICAL PRN (12:22)
[2023-05-30] MEDS ORDERED: HYDROcodone/APAP 7.5-325MG 1 EACH TAB PO PRN (12:22)
[2023-05-30] MEDS ORDERED: diphenhydrAMINE 25 MG CAP PO PRN (12:22)
[2023-05-30] MEDS ORDERED: diphenhydrAMINE 50 MG/ML 1 ML VIAL IVP PRN ×2 (12:22)
--- NOTE | 2023-05-30 12:25 | P.PROBDLV ---
Vaginal Delivery Note - . Vaginal Delivery Note: Patient is a 37-year-old 9 para 51-5 who presents the hospital at 39+ weeks by good dating parameters for elective induction of labor with all signs reassuring, category 1 heart rate tracing. Her has been uncomplicated though she has a remote history of second trimester loss. She also is known to be MTH afar homozygous and, as a result, has used Lovenox subcutaneously daily during all for surgical pregnancies after that her loss. Last dose of Lovenox was yesterday. On labor and delivery, she had Pitocin started and underwent artificial rupture of membranes for clear fluid. She had an epidural catheter placed for analgesia and then made rapid progress through the latent and active phase of labor to complete. She pushed over the course of 1-2 contractions to a normal spontaneous vaginal delivery of a viable 7 lbs. 10 oz. baby girl with Apgars of 9 at 1 minute and 9 at 5 minutes delivered in the direct occiput anterior position. The placenta was delivered spontaneously, intact, and grossly normal with a grossly normal, centrally inserted three- vessel cord. There were no lacerations of the perineum, vagina, or cervix. Assessment a blood loss for the case is approximately 200 mL. There were no complications. Both mother and are resting comfortably in recovery.
[2023-05-30] MEDS: SENNOSIDES-DOCUSATE SODIUM 1 EACH TAB PO SCH (20:16)
[2023-05-30] MEDS: IBUPROFEN 600 MG TAB PO PRN (20:16)
[2023-05-31] MEDS: IBUPROFEN 600 MG TAB PO PRN ×2 (03:50→09:42)
[2023-05-31 07:22] LABS: Basophils % (A) 0 %; Eosinophils # (A) 0.2 k/uL (0-0.7); Eosinophils % (A) 2 %; HCT 39.2 % (34.0-46.0); HGB 13.3 gm/dL (11.4-16.0); Lymphocytes # (A) 2.4 k/uL (1.0-4.8); Lymphocytes % (A) 29 %; MCH 33.2 pg (25.0-35.0); MCHC 33.9 g/dL (31.0-37.0); MCV 97.9 fL (80.0-100.0); Mean Platelet Volume 8.1; Monocytes # (A) 0.6 k/uL (0-1.0); Monocytes % (A) 7 %; Neutrophils # (A) 4.8 k/uL (1.3-7.7); Neutrophils % (A) 58 %; Platelet Count 283 k/uL (150-450); RDW 12.5 % (11.5-15.5); WBC 8.3 k/uL (3.8-10.6)
[2023-05-31] MEDS: SENNOSIDES-DOCUSATE SODIUM 1 EACH TAB PO SCH (07:50)
[2023-05-31 08:29] VITALS: BP 137/94; PULSE 81; RESP 12; TEMP 98.6
--- NOTE | 2023-05-31 08:43 | P.DS ---
Providers Date of admission: 05/30/23 06:14 Expected date of discharge: 05/31/23 Attending physician: Edgar Hester Primary care physician: Stated None - Discharge Diagnosis(es) (1) Term Current Visit: Yes Status: Acute (2) Normal spontaneous vaginal delivery Current Visit: Yes Status: Acute Hospital Course: 37-year-old 9 para 51-5 who presents for elective induction with all signs reassuring, category 1 heart rate tracing. She has been on Lovenox throughout the for history of a previous second trimester demise and an unknown homozygous MT HFR trait. Her was otherwise uncomplicated area group B strep status is negative. On labor and delivery, she had Pitocin started followed by artificial rupture of membranes for clear fluid. She made progress into the active phase and had an epidural catheter placed. She made quick progress to complete and then pushed over the course of 1-2 contractions to a normal spontaneous vaginal delivery of a viable 7 lbs. 10 oz. baby girl with Apgars of 9 at 1 minute and 9 at 5 minutes. Her course was unremarkable with vital signs or any stable and her temperature was afebrile throughout. She was deemed stable for discharge on day #1 was discharged home to follow-up in the office in 6 weeks' time routinely. Discharge instructions included calling for any significantly increased bleeding or foul-smelling lochia, significantly increased fever abdominal pain, perineal complaints, breast complaints, or anything also concerned her. She is additionally instructed to have nothing in the vagina for at least 6 weeks time to include intercourse. She understood her instructions and agrees to follow up as noted above. Discharge medications included continued vitamins as she has opted to breast-feed. She additionally we use [id number] analgesic pain medications as needed. Maternal blood type is A+ and rubella status is immune. Procedures: #1. Pitocin induction #2. Artificial rupture of membranes #3. Epidural anal gesia #4. Normal spontaneous vaginal delivery Patient Condition at Discharge: Stable Plan - Discharge Summary New Discharge Prescriptions: No Action Pnv,Calcium 72/Iron/Folic Acid [ Plus Tablet] 1 tab PO DAILY Aspirin [Adult Low Dose Aspirin EC] 81 mg PO DAILY Enoxaparin [Lovenox] 40 mg SQ DAILY Discharge Medication List Pnv,Calcium 72/Iron/Folic Acid [ Plus Tablet] 1 tab PO DAILY 03/10/17 [History] Aspirin [Adult Low Dose Aspirin EC] 81 mg PO DAILY 05/26/18 [History] Enoxaparin [Lovenox] 40 mg SQ DAILY 10/06/21 [History] Follow up Appointment(s)/Referral(s): Edgar Hester MD [STAFF PHYSICIAN] - 6 Weeks Discharge Disposition: HOME SELF-CARE
== END 2023-05-31 12:40 | disposition home or self-care (01) | DRG 806 ==
LOC: 4FBP 06:14
PROVIDERS: ADMIT Obstetrics & Gynecology; ATTEND Obstetrics & Gynecology
PROC: 10E0XZZ Delivery of Products of Conception, External Approach (ICD-10-PCS; principal; 2023-05-30)
PROC: 3E033VJ Introduction of Other Hormone into Peripheral Vein, Percutaneous Approach (ICD-10-PCS; principal; 2023-05-30)
PROC: 10907ZC Drainage of Amniotic Fluid, Therapeutic from Products of Conception, Via Natural or Artificial Opening (ICD-10-PCS; principal; 2023-05-30)
DX: O99.284 Endocrine, nutritional and metabolic diseases complicating childbirth (principal); E72.12 Methylenetetrahydrofolate reductase deficiency; O99.344 Other mental disorders complicating childbirth; F41.9 Anxiety disorder, unspecified; Z79.82 Long term (current) use of aspirin; Z79.01 Long term (current) use of anticoagulants; Z86.32 Personal history of gestational diabetes; Z28.310 Unvaccinated for COVID-19; Z3A.39 39 weeks gestation of pregnancy; Z37.0 Single live birth
CPT/HCPCS: 85025; 86850; 86900; 86901

== ENCOUNTER → 2023-10-17 | Outpatient (CLI) | payer BC, OTHER ==
[2023-10-17 16:24] LABS: HCT 46.3 % (37.2-46.3); HGB 14.9 g/dL (12.0-15.0); MCH 31.4 pg (27.0-32.0); MCHC 32.2 g/dL (32.0-37.0); MCV 97.7 FL (80.0-97.0); Mean Platelet Volume 9.7 FL (9.5-12.2); NRBC Per 100 WBC 0 X 10*3/uL (0.00-0.01); Platelet Count 352 X 10*3/uL (140-440); RBC 4.74 X 10*6/uL (4.10-5.20); RDW 11.8 % (11.5-14.5); WBC 4.76 X 10*3/uL (4.50-10.00)
[2023-10-17 17:16] LABS: ALT 18 U/L (8-44); AST 22 U/L (13-35); Albumin 4.6 g/dL (3.8-4.9); Albumin/Globulin Ratio 1.84 Ratio (1.60-3.17); Alkaline Phosphatase 45 U/L (41-126); BUN/Creat Ratio 20.25 Ratio (12.00-20.00); Blood Urea Nitrogen 16.2 mg/dL (9.0-27.0); Calcium 9.9 mg/dL (8.7-10.3); Carbon Dioxide 23.8 mmol/L (21.6-31.8); Chloride 104 mmol/L (96-109); Chol/HDL Ratio 2.66 Ratio; Globulin 2.5 g/dL (1.6-3.3); Glucose 77 mg/dL (70-110); LDL Cholesterol,Calculated 147.8 mg/dL (0.0-131.0); Potassium 4.4 mmol/L (3.5-5.5); Sodium 141 mmol/L (135-145); Total Bilirubin 0.5 mg/dL (0.3-1.2); Total Protein 7.1 g/dL (6.2-8.2); VLDL Calculation 13.14 mg/dL (5.00-40.00)
== END | disposition home or self-care (01) ==
LOC: LABWHC1 08:10
PROVIDERS: ATTEND Nurse Practitioner Family
DX: Z00.00 Encounter for general adult medical examination without abnormal findings (principal); E78.9 Disorder of lipoprotein metabolism, unspecified
CPT/HCPCS: 36415; 80053; 80061; 82306; 83036; 83090; 83695; 84443; 85027

== ENCOUNTER → 2024-03-13 | Outpatient (CLI) | payer BC, OTHER ==
[2024-03-13 10:42] LABS: HCT 43.6 % (37.2-46.3); HGB 14.4 g/dL (12.0-15.0); MCH 31.9 pg (27.0-32.0); MCV 96.7 FL (80.0-97.0); Mean Platelet Volume 9.2 FL (9.5-12.2); NRBC Per 100 WBC 0 X 10*3/uL (0.00-0.01); Platelet Count 356 X 10*3/uL (140-440); RBC 4.51 X 10*6/uL (4.10-5.20); WBC 4.81 X 10*3/uL (4.50-10.00)
[2024-03-13 11:10] LABS: ALT 16 U/L (8-44); AST 21 U/L (13-35); Albumin 4.6 g/dL (3.8-4.9); Albumin/Globulin Ratio 1.77 Ratio (1.60-3.17); Alkaline Phosphatase 41 U/L (41-126); Blood Urea Nitrogen 14.8 mg/dL (9.0-27.0); Calcium 9.4 mg/dL (8.7-10.3); Carbon Dioxide 25.6 mmol/L (21.6-31.8); Chloride 102 mmol/L (96-109); Chol/HDL Ratio 2.81 Ratio; Globulin 2.6 g/dL (1.6-3.3); Glucose 82 mg/dL (70-110); LDL Cholesterol,Calculated 159.9 mg/dL (0.0-131.0); Potassium 4.4 mmol/L (3.5-5.5); Sodium 137 mmol/L (135-145); Total Bilirubin 0.5 mg/dL (0.3-1.2); Total Protein 7.2 g/dL (6.2-8.2); VLDL Calculation 15.88 mg/dL (5.00-40.00)
== END | disposition home or self-care (01) ==
LOC: LABWHC1 07:07
PROVIDERS: ATTEND Family Medicine
DX: E55.9 Vitamin D deficiency, unspecified (principal); E78.79 Other disorders of bile acid and cholesterol metabolism; R74.8 Abnormal levels of other serum enzymes
CPT/HCPCS: 36415; 80053; 80061; 82306; 83036; 83090; 83695; 84443; 85027

== ENCOUNTER → 2024-04-09 | Outpatient (CLI) | payer BC, OTHER | END | disposition home or self-care (01) | LOC: LABWHC1 12:13 | PROVIDERS: ATTEND Obstetrics & Gynecology | DX: O20.0 Threatened abortion (principal); Z3A.00 Weeks of gestation of pregnancy not specified | CPT/HCPCS: 36415; 84702 ==

== ENCOUNTER → 2024-06-11 | Outpatient (CLI) | payer OTHER ==
[2024-06-11 15:42] LABS: ALT 18 U/L (8-44); AST 21 U/L (13-35); Albumin 4.7 g/dL (3.8-4.9); Albumin/Globulin Ratio 1.68 Ratio (1.60-3.17); Alkaline Phosphatase 31 U/L (41-126); BUN/Creat Ratio 16.71 Ratio (12.00-20.00); Blood Urea Nitrogen 11.7 mg/dL (9.0-27.0); Calcium 9.4 mg/dL (8.7-10.3); Carbon Dioxide 25.2 mmol/L (21.6-31.8); Chloride 103 mmol/L (96-109); Globulin 2.8 g/dL (1.6-3.3); Glucose 87 mg/dL (70-110); HCG,Quantitative Serum <3.0 mIU/mL (0.0-6.0); Homocysteine 7.06 UMOL/L (4.00-14.00); Iron 114 UG/DL (50-170); Potassium 4.2 mmol/L (3.5-5.5); Sodium 139 mmol/L (135-145); Total Bilirubin 0.7 mg/dL (0.3-1.2); Total Iron Binding Capacity 267 UG/DL (228-460); Total Protein 7.5 g/dL (6.2-8.2)
[2024-06-11 16:51] LABS: Basophils # (A) 0.03 X 10*3/uL (0.00-0.10); Basophils % (A) 0.7 %; Eosinophils # (A) 0.06 X 10*3/uL (0.04-0.35); Eosinophils % (A) 1.3 %; HCT 41.6 % (37.2-46.3); HGB 13.5 g/dL (12.0-15.0); Immature Grans, Automated 0 %; Lymphocytes # (A) 1.85 X 10*3/uL (0.90-5.00); Lymphocytes % (A) 41.5 %; MCH 30.6 pg (27.0-32.0); MCHC 32.5 g/dL (32.0-37.0); MCV 94.3 FL (80.0-97.0); Mean Platelet Volume 9.8 FL (9.5-12.2); Monocytes # (A) 0.48 X 10*3/uL (0.20-1.00); Monocytes % (A) 10.8 %; NRBC Per 100 WBC 0 X 10*3/uL (0.00-0.01); Neutrophils # (A) 2.04 X 10*3/uL (1.80-7.70); Neutrophils % (A) 45.7 %; Platelet Count 367 X 10*3/uL (140-440); RBC 4.41 X 10*6/uL (4.10-5.20); RDW 12.4 % (11.5-14.5); WBC 4.46 X 10*3/uL (4.50-10.00)
== END | disposition home or self-care (01) ==
LOC: LABWHC1 09:17
PROVIDERS: ATTEND Family Medicine
DX: Z34.90 Encounter for supervision of normal pregnancy, unspecified, unspecified trimester (principal)
CPT/HCPCS: 36415; 80053; 83036; 83090; 83540; 83550; 84144; 84443; 84480; 84482; 84702; 85025

== ENCOUNTER → 2024-08-26 | Outpatient (CLI) | payer OTHER ==
[2024-08-26 15:46] LABS: C Reactive Protein <0.30 mg/dL (0.00-0.80); C Reactive Protein, High Sens 0.785 mg/L (0.000-3.000); T4, Free (Free Thyroxine) 1.15 ng/dL (0.80-1.80)
[2024-08-26 17:54] LABS: Insulin Level 3.6 mIU/mL (3.0-25.0)
[2024-08-26 18:53] LABS: Thyroid Peroxidase Antibodies 17.5 U/mL (0.0-33.0)
== END | disposition home or self-care (01) ==
LOC: LABWHC1 09:08
PROVIDERS: ATTEND Family Medicine
DX: E78.79 Other disorders of bile acid and cholesterol metabolism (principal); N96 Recurrent pregnancy loss; R94.6 Abnormal results of thyroid function studies; R74.8 Abnormal levels of other serum enzymes
CPT/HCPCS: 36415; 82306; 83036; 83525; 84439; 84443; 84481; 86140; 86141; 86355; 86357; 86359; 86360; 86376; 86800

== ENCOUNTER → 2024-09-10 | Outpatient (CLI) | payer OTHER ==
[2024-09-10 16:04] LABS: % Iron Saturation 30.07 (12.00-45.00); Ferritin 43.8 ng/mL (10.0-291.0); T4, Free (Free Thyroxine) 1.1 ng/dL (0.80-1.80)
== END | disposition home or self-care (01) ==
LOC: LABWHC1 09:43
PROVIDERS: ATTEND Family Medicine
DX: E03.8 Other specified hypothyroidism (principal); E78.79 Other disorders of bile acid and cholesterol metabolism; N96 Recurrent pregnancy loss; R74.8 Abnormal levels of other serum enzymes; R94.8 Abnormal results of function studies of other organs and systems
CPT/HCPCS: 36415; 82607; 82728; 83540; 83550; 84255; 84436; 84439; 84443; 84481; 84630; 86376

== ENCOUNTER → 2024-09-22 | Outpatient (CLI) | payer OTHER ==
[2024-09-22 10:20] LABS: Basophils # (A) 0.05 X 10*3/uL (0.00-0.10); Basophils % (A) 0.6 %; Eosinophils # (A) 0.12 X 10*3/uL (0.04-0.35); Eosinophils % (A) 1.3 %; HCT 42.9 % (37.2-46.3); HGB 13.5 g/dL (12.0-15.0); Lymphocytes % (A) 37.4 %; MCH 30.1 pg (27.0-32.0); MCHC 31.5 g/dL (32.0-37.0); MCV 95.5 FL (80.0-97.0); Mean Platelet Volume 8.7 FL (9.5-12.2); Monocytes # (A) 0.76 X 10*3/uL (0.20-1.00); Monocytes % (A) 8.4 %; NRBC Per 100 WBC 0 X 10*3/uL (0.00-0.01); Neutrophils # (A) 4.72 X 10*3/uL (1.80-7.70); Platelet Count 423 X 10*3/uL (140-440); RBC 4.49 X 10*6/uL (4.10-5.20); RDW 13.1 % (11.5-14.5); WBC 9.08 X 10*3/uL (4.50-10.00)
[2024-09-22 10:42] LABS: Homocysteine 5.65 UMOL/L (4.00-14.00)
[2024-09-22 10:43] LABS: Thyroid Peroxidase Antibodies 14.8 U/mL (0.0-33.0)
[2024-09-22 15:25] LABS: Appearance,Urine Clear (Clear); Bilirubin,Urine Negative (Negative); Blood,Urine Negative (Negative); Color,Urine Yellow (Yellow); Ketones,Urine Negative (Negative); Nitrite,Urine Negative (Negative); Specific Gravity,Urine 1.015 (1.001-1.030); Urobilinogen,Urine 0.2 E.U./DL
[2024-09-22 15:43] LABS: Bacteria,Urine None Seen (None Seen)
[2024-09-24 06:00] LABS: Methylmalonic Acid 0.17 umol/L (<0.40)
[2024-09-24 11:25] LABS: T4, Free (Free Thyroxine) 1.27 ng/dL (0.80-1.80)
== END | disposition home or self-care (01) ==
LOC: LABWHC1 07:12
PROVIDERS: ATTEND Family Medicine
DX: E72.12 Methylenetetrahydrofolate reductase deficiency (principal); E03.9 Hypothyroidism, unspecified
CPT/HCPCS: 36415; 81001; 82977; 83090; 83921; 84481; 84482; 85025; 86376

== ENCOUNTER → 2024-10-29 | Outpatient (CLI) | payer OTHER ==
[2024-10-29 10:50] LABS: T4, Free (Free Thyroxine) 1.37 ng/dL (0.80-1.80)
== END | disposition home or self-care (01) ==
LOC: LABWHC1 07:47
PROVIDERS: ATTEND Family Medicine
DX: E03.9 Hypothyroidism, unspecified (principal)
CPT/HCPCS: 36415; 84439; 84443; 84481; 84482; 86376

== ENCOUNTER → 2024-11-18 | Outpatient (CLI) | payer OTHER ==
[2024-11-18 10:33] LABS: T4, Free (Free Thyroxine) 1.16 ng/dL (0.80-1.80)
== END | disposition home or self-care (01) ==
LOC: LABWHC1 07:16
PROVIDERS: ATTEND Family Medicine
DX: E03.9 Hypothyroidism, unspecified (principal)
CPT/HCPCS: 36415; 84439; 84443; 84481; 84482; 86376

== ENCOUNTER → 2024-12-05 | Outpatient (CLI) | payer OTHER ==
[2024-12-05 16:12] LABS: T4, Free (Free Thyroxine) 1.04 ng/dL (0.80-1.80)
== END | disposition home or self-care (01) ==
LOC: LABWHC1 07:33
PROVIDERS: ATTEND Family Medicine
DX: E03.9 Hypothyroidism, unspecified (principal)
CPT/HCPCS: 36415; 84439; 84443; 84481; 84482; 86376